=== PATIENT | female | born 1980 | race American Indian/Alaskan Native ===

== ENCOUNTER 2021-11-22 17:15 | Emergency (ER) | payer MEDICAID ==
[2021-11-22] MEDS ORDERED: SODIUM CHLORIDE 0.9% 1000 ML 1,000 ML IV ONE (21:36)
[2021-11-22] MEDS ORDERED: ONDANSETRON 4 MG/2 ML INJ IV ONE (21:36)
[2021-11-22] MEDS ORDERED: MORPHINE 4 MG/1 ML INJ IV ONE ×2 (21:36→23:55)
[2021-11-22 22:47] LABS: Alanine Aminotransferase 11 units/L (7-56); Albumin 4.4 g/dL (3.9-5); Blood Urea Nitrogen 10 mg/dL (7-17); Calcium 10.1 mg/dL (8.4-10.2); Hemolysis Index 4
[2021-11-22 22:51] LABS: BUN/Creatinine Ratio 17
[2021-11-23 00:10] LABS: Bacteria,Urine 2+ /HPF (Negative); Bilirubin,Urine NEG (Negative); Blood,Urine LG (Negative); Color,Urine Red (Yellow); Mucus,Urine FEW /HPF; Urobilinogen,Urine < 2.0 mg/dL (<2.0)
[2021-11-23 00:13] LABS: RBC,Urine > 182.0 /HPF (0.0-6.0)
--- NOTE | 2021-11-23 00:31 | Ultrasound Report ---
US OB transvaginal, US OB <= 14 weeks fetus INDICATION / CLINICAL INFORMATION: Abdominal pain, vaginal bleeding. COMPARISON: None available. FINDINGS: Transabdominal and transvaginal imaging was performed. Intrauterine gestational sac is seen with pole. [place]-rump length is 3.15 cm (8 weeks 5 days). heart rate is 199. Maternal ovaries are not visualized. Minimal free fluid is noted in the cul-de-sac. IMPRESSION: 1. Single viable intrauterine with sonographic gestational age of 8 weeks, 5 days by crown- rump length. Signer Name: Chase Spence MD Signed: 11/23/2021 12:26 AM Workstation Name: [id number]
--- NOTE | 2021-11-23 00:52 | Emergency Department Report ---
ED Female HPI - General Chief complaint: Abdominal Pain Stated complaint: 12 WKS SPOTTING CRAMPING Time Seen by Provider: 11/22/21 23:54 Source: patient Mode of arrival: Ambulatory Limitations: No Limitations - History of Present Illness Initial comments: Chief complaint: "I knew I was having a miscarriage." HPI: This is a 40-year-old female with history of diabetes mellitus -2-0-2 estimated due date June 08, 2022 who presents with vaginal spotting initially. She came to the emergency department and developed severe pain and bleeding. She has 10 out of 10 pelvic pain rating to the back. She receives obstetrical care at [facility] in [place]. According to due date, gestational age 11 weeks and 6 days MD Complaint: vaginal bleeding, pelvic pain -: Gradual, This evening Severity: severe Severity scale (0 -10): 10 Quality: cramping Consistency: intermittent Improves with: none, urination Worsens with: none Are you Now?: Yes Associated Symptoms: denies other symptoms - Related Data Previous Rx's Medication Instructions Recorded Last Taken Type HYDROcodone/APAP 5-325 [[place] 1 each PO Q6HR PRN #15 tablet 11/23/21 Unknown Rx 5/325] Ondansetron [Zofran Odt] 4 mg PO Q8HR PRN #10 tab.rapdis 11/23/21 Unknown Rx miSOPROStoL [Cytotec] 4 tab PO Q8H #2 tablet 11/23/21 Unknown Rx Allergies Allergy/AdvReac Type Severity Reaction Status Date / Time No Known Allergies Allergy Unverified 11/22/21 18:09 ED Review of Systems ROS: Stated complaint: 12 WKS SPOTTING CRAMPING Other details as noted in HPI Comment: All other systems reviewed and negative Constitutional: denies: chills, fever, malaise Respiratory: denies: cough, shortness of breath Cardiovascular: denies: chest pain Gastrointestinal: denies: nausea, vomiting ED Past Medical Hx - Past Medical History Previous Medical History?: Yes Hx Diabetes: Yes - Surgical History Past Surgical History?: Yes Additional Surgical History: C SECTION X 2 - Family History Family history: diabetes - Social History Smoking Status: Current Every Day Smoker Substance Use Type: None - Medications Home Medications: Home Medications Medication Instructions Recorded Confirmed Last Taken Type HYDROcodone/APAP 5-325 [[place] 1 each PO Q6HR PRN #15 tablet 11/23/21 Unknown Rx 5/325] Ondansetron [Zofran Odt] 4 mg PO Q8HR PRN #10 tab.rapdis 11/23/21 Unknown Rx miSOPROStoL [Cytotec] 4 tab PO Q8H #2 tablet 11/23/21 Unknown Rx ED Physical Exam - General Limitations: No Limitations General appearance: alert, in no apparent distress, other (Tearful, very upset, in pain) - Head Head exam: Present: atraumatic, normocephalic - Eye Eye exam: Present: normal appearance - ENT ENT exam: Present: mucous membranes moist - Neck Neck exam: Present: normal inspection, full ROM - Respiratory Respiratory exam: Present: normal lung sounds bilaterally. Absent: respiratory distress, wheezes, rales, rhonchi - Cardiovascular Cardiovascular Exam: Present: regular rate, normal rhythm, normal heart sounds. Absent: systolic murmur, diastolic murmur, rubs, gallop - GI/Abdominal GI/Abdominal exam: Present: soft, normal bowel sounds. Absent: distended, tend erness, guarding, rebound - External exam: Present: normal external exam Speculum exam: Present: vaginal bleeding, tissue, other (Copious amount of vaginal bleeding) - Extremities Exam Extremities exam: Present: normal inspection - Neurological Exam Neurological exam: Present: alert, oriented X3 - Psychiatric Psychiatric exam: Present: normal affect, normal mood - Skin Skin exam: Present: warm, dry, intact, normal color. Absent: rash ED Course Vital Signs 11/22/21 11/22/21 11/22/21 18:12 22:05 23:15 Temperature 98.4 F Pulse Rate 79 Respiratory 18 196 H Rate Blood Pressure 127/95 [Right] O2 Sat by Pulse 100 100 Oximetry 11/23/21 11/23/21 00:18 01:58 Temperature Pulse Rate 98 H 100 H Respiratory 20 22 Rate Blood Pressure 135/89 151/88 [Right] O2 Sat by Pulse 99 98 Oximetry - Reevaluation(s) Reevaluation #1: 11/23/21 01:06 Ice Scraper gave me verbal report. She is concerned for impending miscarriage. Patient did not develop severe amount of bleeding with pain. After pelvic exam revealed tissue products of conception and dilated cervix, I spoke with OB hospitalist Dr. Jordan recommended misoprostol 800 mcg. Reevaluation #2: 11/23/21 02:13 Patient has severe 10/10 Pain, Zofran morphine ordered. Patient has vaginal bleeding. Reevaluation #3: 11/23/21 02:31 Toradol ordered for additional pain relief. Reevaluation #4: 11/23/21 03:34 Patient had large expulsion of clot, vaginal bleeding and tissue. ED Medical Decision Making - Lab Data Result diagrams: 11/23/21 02:36 11/22/21 21:40 - Medical Decision Making Incomplete miscarriage: Had severe persistent pain for several hours. After passing tissue, a large clots she is now pain-free. Upon discharge she is normotensive with out tachycardia. I have prescribed Cytotec 2 additional doses as well as [place] and Zofran. She will follow up with her personal obstetricia n. CBC revealed leukocytosis with normal hemoglobin. Hemoglobin was obtained 4 hours after evaluation emergency department. I do not suspect infection at this time. Chemistry revealed elevated glucose without acidosis. Urinalysis contaminated with blood. Critical Care Time: Yes Critical care attestation.: If time is entered above; I have spent that time in minutes in the direct care of this critically ill patient, excluding procedure time. 40 minutes of critical care time excluding procedures were used in the care of the patient. I discussed treatment plan with the nursing team members. I reviewed electronic record. I was concerned for the potential development of hemorrhagic shock. Patient required multiple interventions and reassessments. ED Disposition Clinical Impression: Incomplete miscarriage Disposition: 01 HOME / SELF CARE / HOMELESS Is pt being admited?: No Does the pt Need Aspirin: No Condition: Stable Instructions: Abdominal Pain (ED), Managing Loss, Miscarriage, [id number] Prescriptions: miSOPROStoL [Cytotec] 4 tab PO Q8H #2 tablet HYDROcodone/APAP 5-325 [[place] 5/325] 1 each PO Q6HR PRN #15 tablet PRN Reason: Pain Ondansetron [Zofran Odt] 4 mg PO Q8HR PRN #10 tab.rapdis PRN Reason: Nausea Referrals: PRIMARY CARE, [Primary Care Provider] - 3-5 Days
[2021-11-23] MEDS ORDERED: MORPHINE 4 MG/1 ML INJ IV ONE ×2 (01:06→02:11)
[2021-11-23] MEDS ORDERED: miSOPROStol 200 MCG TAB PO ONE (01:35)
[2021-11-23 01:59] VITALS: BP 151/88
[2021-11-23] MEDS ORDERED: ONDANSETRON 4 MG/2 ML INJ ONE (02:12)
[2021-11-23] MEDS ORDERED: ONDANSETRON 4 MG/2 ML INJ IV ONE ×2 (02:12→03:37)
[2021-11-23] MEDS ORDERED: KETOROLAC 30 MG/1 ML INJ IV STA (02:29)
[2021-11-23 02:52] LABS: Hematocrit 34.7 % (30.3-42.9); Hemoglobin 11.4 gm/dl (10.1-14.3); Mean Corpuscular HGB Conc 33 % (30-34); Mean Corpuscular Volume 82 fl (79-97); Platelet Count 337 K/mm3 (140-440); Red Blood Count 4.23 M/mm3 (3.65-5.03); Red Cell Distribution Width 16.1 % (13.2-15.2)
== END 2021-11-23 04:58 | disposition home or self-care (01) ==
LOC: ED 17:15
DX: O02.1 Missed abortion (principal); Z3A.13 13 weeks gestation of pregnancy
CPT/HCPCS: 36415; 76801; 76817; 80053; 81001; 82962; 84702; 85027; 86900; 86901; 96361; 96374; 96375; 96376; 99285; J1885; J2270; J2405; J7030; 99284; Q0162